=== PATIENT | male | born 1940 | race Caucasian/White ===

== ENCOUNTER 2021-09-28 21:39 | Inpatient (IN) | payer MEDICARE ==
[~2021-09-28] VITALS: Ht 180.3 cm; Wt 76.0 kg
[2021-09-28] MEDS ORDERED: PIPERACILLIN/TAZO 3.375 GM/D5W 50 ML IV ONE (22:15)
[2021-09-28] MEDS ORDERED: SODIUM CHLORIDE 0.9% 2,000 ML IV ONE (22:15)
[2021-09-28 22:26] LABS: COVID AG,FIA SOURCE NASOPHARYNGEAL
[2021-09-28 22:29] LABS: BASOPHILS % (AUTO) 0.3 % (0.0-2.0); EOSINOPHILS % (AUTO) 0.3 % (1.0-6.0); HEMATOCRIT 36.2 % (41-53); HEMOGLOBIN 11.8 g/dL (13.5-17.5); LYMPHOCYTES # (AUTO) 1.1 K/uL (1.0-4.8); LYMPHOCYTES % (AUTO) 7.4 % (22.0-44.0); MEAN CORPUSCULAR HEMOGLOBIN 28.8 pg (26.0-34.0); MEAN CORPUSCULAR HGB CONC 32.7 G/dL (31.0-37.0); MEAN CORPUSCULAR VOLUME 88 fL (80-100); MONOCYTES # (AUTO) 1.3 K/uL (0.1-1.0); MONOCYTES % (AUTO) 8.9 % (2.0-9.0); NEUTROPHILS # (AUTO) 12.6 K/uL (1.8-7.7); NEUTROPHILS % (AUTO) 83.1 % (40.0-70.0); PLATELET COUNT (AUTO) 350 K/uL (150-450); RED CELL DISTRIBUTION WIDTH 13.9 % (11.5-14.5)
[2021-09-28 22:30] LABS: APPEARANCE,URINE TURBID (CLEAR); BILIRUBIN,URINE NEGATIVE (NEGATIVE); GLUCOSE, URINE (UA) NEGATIVE (NEGATIVE); KETONES,URINE NEGATIVE (NEGATIVE); LEUKOCYTE ESTERASE ,URINE LARGE (NEGATIVE); NITRATE,URINE NEGATIVE (NEGATIVE); OCCULT BLOOD,URINE SMALL (NEGATIVE); PROTEIN,URINE 30-70 mg/dL (NEGATIVE); SPECIFIC GRAVITIY, URINE 1.013 (1.003-1.030); UROBILINOGEN,URINE <=1.0 mg/dL (<=1.0)
[2021-09-28 22:38] LABS: BACTERIA,URINE Many /HPF (None Seen); RBC,URINE 0-2 /HPF (0-2)
[2021-09-28 22:40] LABS: ANION GAP 10 mmol/L (8-16); CALCIUM, TOTAL 8.3 mg/dL (8.8-10.5); CARBON DIOXIDE 22 mmol/L (22-29); CHLORIDE 106 mmol/L (98-107); CREATININE 0.97 mg/dL (0.60-1.30); GLUCOSE,RANDOM 146 mg/dL (70-110); POTASSIUM 3.3 mmol/L (3.5-5.1); SODIUM SERUM 138 mmol/L (136-145); UREA NITROGEN, BLOOD 24 mg/dL (7-18)
[2021-09-28 22:41] LABS: GLOMERULAR FILTR. RATE CALC > 60 mL/min (>60)
[2021-09-28 22:46] LABS: ALANINE AMINOTRANSFERASE 13 U/L (12-78); ALBUMIN 2.8 g/dL (3.4-5.0); ALKALINE PHOSPHATASE 88 U/L (46-116); ASPARTATE AMINOTRANSFERASE 19 U/L (15-37); BILIRUBIN,TOTAL 0.3 mg/dL (0.1-1.0); LIPASE 75 U/L (73-393); TOTAL PROTEIN, SERUM 7.1 g/dL (6.4-8.2)
[2021-09-28 22:47] LABS: AMMONIA 18 umol/L (11-32)
[2021-09-28 22:51] LABS: LACTIC ACID 3.4 mmol/L (0.4-2.0)
[2021-09-28 22:52] LABS: B-TYPE NATRIURETIC PEPTIDE 51 pg/mL (0-100)
[2021-09-28] MEDS ORDERED: RINGERS LACTATED IV ONE (23:30)
[2021-09-28] MEDS ORDERED: ACETAMINOPHEN 325 MG TABLET PO PRN (23:30)
[2021-09-28] MEDS ORDERED: ONDANSETRON HCL 4 MG/2 ML VIAL IVP PRN (23:30)
[2021-09-29] MEDS ORDERED: FURO20 PO (00:17)
[2021-09-29] MEDS ORDERED: ATOR20TA86 PO (00:17)
[2021-09-29] MEDS ORDERED: CARB-107 PO (00:17)
[2021-09-29] MEDS ORDERED: CHOL25TA4 PO (00:17)
[2021-09-29] MEDS ORDERED: SENN-308 PO (00:17)
[2021-09-29] MEDS ORDERED: SODI473S21 TP (00:17)
[2021-09-29] MEDS ORDERED: ASPI-1450 PO (00:17)
[2021-09-29] MEDS ORDERED: DOCU-350 PO ×2 (00:17)
[2021-09-29] MEDS ORDERED: AMLO-257 PO (00:17)
[2021-09-29] MEDS ORDERED: AMIN30LI28 PO (00:17)
[2021-09-29] MEDS ORDERED: TAMS-13 PO (00:17)
[2021-09-29] MEDS ORDERED: POLY17PO47 PO (00:17)
[2021-09-29] MEDS ORDERED: ACET-2247 PO (00:17)
[2021-09-29] MEDS ORDERED: TRAM50TA4 PO (00:17)
[2021-09-29] MEDS: SODIUM CHLORIDE 0.9% 1,000 ML IV SCH ×2 (00:47→14:19)
[2021-09-29] MEDS: HEPARIN SODIUM,PORCINE 5,000 UNITS/ML VIAL SQ SCH ×4 (00:48→23:11)
[2021-09-29] MEDS: PIPERACILLIN/TAZO 3.375 GM/D5W 50 ML IV SCH ×4 (04:22→23:41)
[2021-09-29] MEDS ORDERED: TraMADol HCL 50 MG TABLET PO PRN (05:15)
[2021-09-29] MEDS: AMINO ACIDS/PROTEIN HYDROLYS 30 ML TUBE PO SCH (08:00)
[2021-09-29] MEDS: AmLODIPine BESYLATE 5 MG TABLET PO SCH (09:27)
[2021-09-29] MEDS: CHOLECALCIFEROL (VIT D3) 1,000 UNITS [25 MCG] TABLET PO SCH (09:27)
[2021-09-29] MEDS: DOCUSATE SODIUM 100 MG CAPSULE PO SCH ×2 (09:27→19:58)
[2021-09-29] MEDS: ASPIRIN 81 MG CHEWABLE TABLET PO SCH (09:28)
[2021-09-29 10:20] VITALS: BP 153/92
[2021-09-29] MEDS ORDERED: POTASSIUM CHLORIDE 20 MEQ ER TABLET PO PRN (10:30)
[2021-09-29] MEDS: CARBIDOPA/LEVODOPA 25-250 MG TABLET PO SCH (11:25)
[2021-09-29] MEDS: POLYETHYLENE GLYCOL 3350 17 GM PACKET PO SCH (11:25)
[2021-09-29] MEDS: SODIUM HYPOCHLORITE 0.25% [HALF STRENGTH] 473 ML SOLUTION TP SCH (11:25)
[2021-09-29] MEDS: POTASSIUM CHL 10 MEQ/WATER 50 ML IV PRN ×5 (11:26→19:57)
[2021-09-29 11:30] VITALS: BP 153/92
[2021-09-29] MEDS ORDERED: SODIUM CHLORIDE 0.9% 250 ML IV ONE (13:26)
[2021-09-29 14:50] VITALS: BP 155/85
[2021-09-29] MEDS: METOPROLOL SUCCINATE 25 MG ER TABLET PO SCH ×2 (15:04→20:04)
[2021-09-29 15:37] VITALS: BP 155/85
[2021-09-29] MEDS ORDERED: VANCOMYCIN HCL 1.25 GM in DEXTROSE 5%-WATER 250 ML IV ONE (19:00)
[2021-09-29] MEDS: SENNA/DOCUSATE SODIUM 8.6-50 MG TABLET PO SCH (19:58)
[2021-09-29] MEDS: TAMSULOSIN HCL 0.4 MG CAPSULE PO SCH (19:58)
[2021-09-29] MEDS: ATORVASTATIN CALCIUM 20 MG TABLET PO SCH (19:58)
[2021-09-29 20:15] VITALS: BP 142/79
[2021-09-29] MEDS ORDERED: DOCUSATE SODIUM 250 MG CAPSULE PO SCH (21:00)
[2021-09-30] VITALS (8 sets, daily range): BP systolic 97–138; BP diastolic 44–75
[2021-09-30] MEDS: PIPERACILLIN/TAZO 3.375 GM/D5W 50 ML IV SCH ×4 (04:26→23:07)
[2021-09-30] MEDS: SODIUM CHLORIDE 0.9% 1,000 ML IV SCH ×2 (05:31→23:06)
[2021-09-30 06:20] LABS: BASOPHILS % (AUTO) 0.1 % (0.0-2.0); EOSINOPHILS % (AUTO) 2.3 % (1.0-6.0); HEMOGLOBIN 11.6 g/dL (13.5-17.5); LYMPHOCYTES # (AUTO) 1.9 K/uL (1.0-4.8); LYMPHOCYTES % (AUTO) 17.3 % (22.0-44.0); MEAN CORPUSCULAR HEMOGLOBIN 29.3 pg (26.0-34.0); MEAN CORPUSCULAR HGB CONC 33.2 G/dL (31.0-37.0); MEAN CORPUSCULAR VOLUME 88 fL (80-100); MONOCYTES % (AUTO) 9.5 % (2.0-9.0); NEUTROPHILS # (AUTO) 7.6 K/uL (1.8-7.7); NEUTROPHILS % (AUTO) 70.8 % (40.0-70.0); PLATELET COUNT (AUTO) 281 K/uL (150-450); RED BLOOD CELL COUNT(AUTO) 3.97 MIL/uL (4.50-5.90); RED CELL DISTRIBUTION WIDTH 14.1 % (11.5-14.5)
[2021-09-30 06:32] LABS: ANION GAP 7 mmol/L (8-16); CALCIUM, TOTAL 8.4 mg/dL (8.8-10.5); CARBON DIOXIDE 26 mmol/L (22-29); CHLORIDE 105 mmol/L (98-107); CREATININE 0.64 mg/dL (0.60-1.30); GLUCOSE,RANDOM 95 mg/dL (70-110); POTASSIUM 3.6 mmol/L (3.5-5.1); SODIUM SERUM 138 mmol/L (136-145); UREA NITROGEN, BLOOD 9 mg/dL (7-18)
[2021-09-30 06:34] LABS: GLOMERULAR FILTR. RATE CALC > 60 mL/min (>60)
[2021-09-30] MEDS: POLYETHYLENE GLYCOL 3350 17 GM PACKET PO SCH (07:52)
[2021-09-30] MEDS: AMINO ACIDS/PROTEIN HYDROLYS 30 ML TUBE PO SCH (08:00)
[2021-09-30] MEDS ORDERED: POTASSIUM CHLORIDE 20 MEQ ER TABLET PO ONE (08:15)
[2021-09-30] MEDS: VANCOMYCIN HCL 500 MG in DEXTROSE 5%-WATER 100 ML IV SCH ×2 (08:23→20:05)
[2021-09-30] MEDS: CARBIDOPA/LEVODOPA 25-250 MG TABLET PO SCH (08:31)
[2021-09-30] MEDS: HEPARIN SODIUM,PORCINE 5,000 UNITS/ML VIAL SQ SCH ×3 (08:31→23:07)
[2021-09-30] MEDS: ASPIRIN 81 MG CHEWABLE TABLET PO SCH (08:31)
[2021-09-30] MEDS: DOCUSATE SODIUM 100 MG CAPSULE PO SCH ×2 (08:31→20:05)
[2021-09-30] MEDS: METOPROLOL SUCCINATE 25 MG ER TABLET PO SCH ×2 (08:31→20:05)
[2021-09-30] MEDS: SODIUM HYPOCHLORITE 0.25% [HALF STRENGTH] 473 ML SOLUTION TP SCH (08:32)
[2021-09-30] MEDS: CHOLECALCIFEROL (VIT D3) 1,000 UNITS [25 MCG] TABLET PO SCH (08:32)
[2021-09-30] MEDS: AmLODIPine BESYLATE 5 MG TABLET PO SCH (08:34)
[2021-09-30] MEDS: SENNA/DOCUSATE SODIUM 8.6-50 MG TABLET PO SCH (20:05)
[2021-09-30] MEDS: ATORVASTATIN CALCIUM 20 MG TABLET PO SCH (20:05)
[2021-09-30] MEDS: TAMSULOSIN HCL 0.4 MG CAPSULE PO SCH (20:05)
[2021-10-01] VITALS (8 sets, daily range): BP systolic 123–142; BP diastolic 68–88
[2021-10-01] MEDS: PIPERACILLIN/TAZO 3.375 GM/D5W 50 ML IV SCH ×4 (04:49→22:25)
[2021-10-01 08:23] LABS: ANION GAP 8 mmol/L (8-16); CARBON DIOXIDE 25 mmol/L (22-29); CHLORIDE 104 mmol/L (98-107); CREATININE 0.57 mg/dL (0.60-1.30); GLUCOSE,RANDOM 93 mg/dL (70-110); POTASSIUM 3.5 mmol/L (3.5-5.1); SODIUM SERUM 137 mmol/L (136-145); UREA NITROGEN, BLOOD 8 mg/dL (7-18); VANCOMYCIN,RANDOM 9.7 mcg/mL (25.0-50.0)
[2021-10-01 08:25] LABS: GLOMERULAR FILTR. RATE CALC > 60 mL/min (>60)
[2021-10-01] MEDS: AMINO ACIDS/PROTEIN HYDROLYS 30 ML TUBE PO SCH (09:39)
[2021-10-01] MEDS: VANCOMYCIN 1GM/WATER(PEG/NADA) 200 ML IV SCH ×2 (09:39→20:37)
[2021-10-01] MEDS: HEPARIN SODIUM,PORCINE 5,000 UNITS/ML VIAL SQ SCH ×3 (09:40→22:26)
[2021-10-01] MEDS: ASPIRIN 81 MG CHEWABLE TABLET PO SCH (09:40)
[2021-10-01] MEDS: CHOLECALCIFEROL (VIT D3) 1,000 UNITS [25 MCG] TABLET PO SCH (09:40)
[2021-10-01] MEDS: CARBIDOPA/LEVODOPA 25-250 MG TABLET PO SCH (09:41)
[2021-10-01] MEDS: DOCUSATE SODIUM 100 MG CAPSULE PO SCH ×2 (09:41→20:39)
[2021-10-01] MEDS: POLYETHYLENE GLYCOL 3350 17 GM PACKET PO SCH (09:41)
[2021-10-01] MEDS: METOPROLOL SUCCINATE 25 MG ER TABLET PO SCH ×2 (09:41→20:39)
[2021-10-01] MEDS: AmLODIPine BESYLATE 5 MG TABLET PO SCH (09:41)
[2021-10-01] MEDS: SODIUM HYPOCHLORITE 0.25% [HALF STRENGTH] 473 ML SOLUTION TP SCH (09:41)
[2021-10-01] MEDS: TAMSULOSIN HCL 0.4 MG CAPSULE PO SCH (20:39)
[2021-10-01] MEDS: SENNA/DOCUSATE SODIUM 8.6-50 MG TABLET PO SCH (20:39)
[2021-10-01] MEDS: ATORVASTATIN CALCIUM 20 MG TABLET PO SCH (20:39)
[2021-10-01] MEDS: SODIUM CHLORIDE 0.9% 1,000 ML IV SCH (22:25)
[2021-10-02 03:45] VITALS: BP 122/71
[2021-10-02] MEDS: PIPERACILLIN/TAZO 3.375 GM/D5W 50 ML IV SCH ×4 (05:51→23:58)
[2021-10-02 07:04] LABS: BASOPHILS % (AUTO) 0.2 % (0.0-2.0); EOSINOPHILS % (AUTO) 4.3 % (1.0-6.0); HEMATOCRIT 33.5 % (41-53); HEMOGLOBIN 11.3 g/dL (13.5-17.5); LYMPHOCYTES # (AUTO) 1.6 K/uL (1.0-4.8); LYMPHOCYTES % (AUTO) 20.1 % (22.0-44.0); MEAN CORPUSCULAR HEMOGLOBIN 29.1 pg (26.0-34.0); MEAN CORPUSCULAR HGB CONC 33.6 G/dL (31.0-37.0); MEAN CORPUSCULAR VOLUME 87 fL (80-100); MONOCYTES # (AUTO) 0.8 K/uL (0.1-1.0); MONOCYTES % (AUTO) 9.7 % (2.0-9.0); NEUTROPHILS # (AUTO) 5.2 K/uL (1.8-7.7); NEUTROPHILS % (AUTO) 65.7 % (40.0-70.0); PLATELET COUNT (AUTO) 291 K/uL (150-450); RED BLOOD CELL COUNT(AUTO) 3.86 MIL/uL (4.50-5.90); RED CELL DISTRIBUTION WIDTH 13.9 % (11.5-14.5)
[2021-10-02 07:18] LABS: ANION GAP 8 mmol/L (8-16); CALCIUM, TOTAL 8.4 mg/dL (8.8-10.5); CARBON DIOXIDE 24 mmol/L (22-29); CHLORIDE 107 mmol/L (98-107); CREATININE 0.55 mg/dL (0.60-1.30); GLUCOSE,RANDOM 79 mg/dL (70-110); POTASSIUM 3.3 mmol/L (3.5-5.1); SODIUM SERUM 139 mmol/L (136-145); UREA NITROGEN, BLOOD 8 mg/dL (7-18)
[2021-10-02 07:19] LABS: GLOMERULAR FILTR. RATE CALC > 60 mL/min (>60)
[2021-10-02 07:55] VITALS: BP 136/73
[2021-10-02] MEDS: AMINO ACIDS/PROTEIN HYDROLYS 30 ML TUBE PO SCH (08:00)
[2021-10-02] MEDS: CARBIDOPA/LEVODOPA 25-250 MG TABLET PO SCH (08:20)
[2021-10-02] MEDS: METOPROLOL SUCCINATE 25 MG ER TABLET PO SCH ×2 (08:20→20:37)
[2021-10-02] MEDS: VANCOMYCIN 1GM/WATER(PEG/NADA) 200 ML IV SCH ×2 (08:20→20:37)
[2021-10-02] MEDS: CHOLECALCIFEROL (VIT D3) 1,000 UNITS [25 MCG] TABLET PO SCH (08:20)
[2021-10-02] MEDS: ASPIRIN 81 MG CHEWABLE TABLET PO SCH (08:20)
[2021-10-02] MEDS: HEPARIN SODIUM,PORCINE 5,000 UNITS/ML VIAL SQ SCH ×3 (08:21→23:58)
[2021-10-02] MEDS: DOCUSATE SODIUM 100 MG CAPSULE PO SCH ×2 (08:21→20:38)
[2021-10-02] MEDS: AmLODIPine BESYLATE 5 MG TABLET PO SCH (08:21)
[2021-10-02] MEDS: SODIUM HYPOCHLORITE 0.25% [HALF STRENGTH] 473 ML SOLUTION TP SCH (08:21)
[2021-10-02] MEDS: POLYETHYLENE GLYCOL 3350 17 GM PACKET PO SCH (08:21)
[2021-10-02] MEDS: SODIUM CHLORIDE 0.9% 1,000 ML IV SCH (11:06)
[2021-10-02 12:30] VITALS: BP 118/67
[2021-10-02 16:35] VITALS: BP 134/86
[2021-10-02] MEDS: ATORVASTATIN CALCIUM 20 MG TABLET PO SCH (20:37)
[2021-10-02] MEDS: SENNA/DOCUSATE SODIUM 8.6-50 MG TABLET PO SCH (20:37)
[2021-10-02] MEDS: TAMSULOSIN HCL 0.4 MG CAPSULE PO SCH (20:37)
[2021-10-02 20:47] VITALS: BP 134/74
[2021-10-03 00:03] VITALS: BP 153/80
[2021-10-03 04:37] VITALS: BP 139/73
[2021-10-03] MEDS: PIPERACILLIN/TAZO 3.375 GM/D5W 50 ML IV SCH ×3 (05:01→16:32)
[2021-10-03 06:22] LABS: VANCOMYCIN,RANDOM 20.5 mcg/mL (25.0-50.0)
[2021-10-03 06:27] LABS: ANION GAP 7 mmol/L (8-16); CALCIUM, TOTAL 8.7 mg/dL (8.8-10.5); CARBON DIOXIDE 25 mmol/L (22-29); CHLORIDE 106 mmol/L (98-107); CREATININE 0.62 mg/dL (0.60-1.30); GLUCOSE,RANDOM 87 mg/dL (70-110); POTASSIUM 3.9 mmol/L (3.5-5.1); SODIUM SERUM 138 mmol/L (136-145); UREA NITROGEN, BLOOD 11 mg/dL (7-18)
[2021-10-03 06:37] LABS: GLOMERULAR FILTR. RATE CALC > 60 mL/min (>60)
[2021-10-03 07:50] VITALS: BP 128/77
[2021-10-03] MEDS: CARBIDOPA/LEVODOPA 25-250 MG TABLET PO SCH (08:10)
[2021-10-03] MEDS: VANCOMYCIN 1GM/WATER(PEG/NADA) 200 ML IV SCH (08:10)
[2021-10-03] MEDS: DOCUSATE SODIUM 100 MG CAPSULE PO SCH (08:11)
[2021-10-03] MEDS: ASPIRIN 81 MG CHEWABLE TABLET PO SCH (08:11)
[2021-10-03] MEDS: CHOLECALCIFEROL (VIT D3) 1,000 UNITS [25 MCG] TABLET PO SCH (08:11)
[2021-10-03] MEDS: SODIUM HYPOCHLORITE 0.25% [HALF STRENGTH] 473 ML SOLUTION TP SCH (08:11)
[2021-10-03] MEDS: AmLODIPine BESYLATE 5 MG TABLET PO SCH (08:11)
[2021-10-03] MEDS: METOPROLOL SUCCINATE 25 MG ER TABLET PO SCH (08:11)
[2021-10-03] MEDS: HEPARIN SODIUM,PORCINE 5,000 UNITS/ML VIAL SQ SCH ×2 (08:11→16:32)
[2021-10-03] MEDS: POLYETHYLENE GLYCOL 3350 17 GM PACKET PO SCH (08:12)
[2021-10-03] MEDS: AMINO ACIDS/PROTEIN HYDROLYS 30 ML TUBE PO SCH (08:12)
[2021-10-03 12:05] VITALS: BP 94/52
[2021-10-03 16:25] VITALS: BP 129/69
[2021-10-03 19:35] VITALS: BP 122/58
== END 2021-10-03 21:31 | DRG 871 ==
LOC: EMS 21:39 → 5S 09-29 08:25
PROVIDERS: ADMIT Internal Medicine; ATTEND Internal Medicine
DX: A41.9 Sepsis, unspecified organism (principal); E43 Unspecified severe protein-calorie malnutrition; G92.9 Unspecified toxic encephalopathy; N39.0 Urinary tract infection, site not specified; E87.6 Hypokalemia; F02.80 Dementia in other diseases classified elsewhere, unspecified severity, without behavioral disturbance, psychotic disturbance, mood disturbance, and anxiety; G20 Parkinson's disease; I50.9 Heart failure, unspecified; I11.0 Hypertensive heart disease with heart failure; N40.0 Benign prostatic hyperplasia without lower urinary tract symptoms; R62.7 Adult failure to thrive; Z20.822 Contact with and (suspected) exposure to COVID-19; R41.82 Altered mental status, unspecified; Y73.8 Miscellaneous gastroenterology and urology devices associated with adverse incidents, not elsewhere classified; T83.091A Other mechanical complication of indwelling urethral catheter, initial encounter; R41.89 Other symptoms and signs involving cognitive functions and awareness; D64.9 Anemia, unspecified; Z68.23 Body mass index [BMI] 23.0-23.9, adult; Z88.3 Allergy status to other anti-infective agents; Z86.73 Personal history of transient ischemic attack (TIA), and cerebral infarction without residual deficits; Z88.2 Allergy status to sulfonamides; Z88.8 Allergy status to other drugs, medicaments and biological substances
CPT/HCPCS: 51702; 71045; 80048; 80053; 80202; 81001; 82140; 83605; 83690; 83735; 83880; 84132; 84484; 85025; 87040; 87077; 87081; 87086; 87205; 92610; 93005; 97162; 97167; 97535; 99291; J1644; J2543; J3370; J3480; J7030; J7050; J7060; J7120; Q9967; 36415-L1; 36415-TC; Z7610